=== PATIENT | male | born 1965 | race Caucasian/White ===

== ENCOUNTER 2021-07-13 22:13 | Emergency (ER) | payer MEDICARE, MEDICAID, SELFPAY ==
[2021-07-13 22:51] VITALS: BP 143/103; PULSE 78; RESP 16; TEMP 36.1; O2SAT 97; BMI 26.4
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
[2021-07-13 23:55] VITALS: BP 135/84; PULSE 73; RESP 16; TEMP 36.5; O2SAT 96
[2021-07-14 00:03] LABS: Add Urine Culture? Yes; Add Urine Microscopic? YES; Bacteria Urine 3+ /hpf; Bilirubin Urine Neg (Negative); Blood Urine 2+ (Negative); Glucose Urine UA Norm (Normal); Ketones Urine Negative (Negative); Leukocyte Esterase Urine 2+ (Negative); Nitrate Urine Positive (Negative); Protein Urine Trace (Negative); RBC Urine 0-4 /hpf (0-2); Specific Gravity, Urine 1.015 (1.005-1.030); Squamous Epithelial Cell Urine 0-4 /hpf (0-5); Urine Appearance Clear (CLEAR); Urine Color Yellow (Yellow); Urobilinogen Urine Norm (Negative); WBC Urine 40-55 /hpf (0-5); pH Urine 6 (5-7)
[2021-07-14 00:17] LABS: Basophils % 0.3 %; Eosinophils # 0.2 10^3/uL (0.0-0.8); Eosinophils % 1.2 %; Hematocrit 35.2 % (42.0-52.0); Hemoglobin 11.6 g/dL (11.7-16.6); Lymphocytes # 1.7 10^3/uL (0.8-4.8); Lymphocytes % 13.4 %; Mean Platelet Volume 10.3 fL (7.4-10.4); Monocytes # 1.4 10^3/uL (0.2-0.9); Monocytes % 11.4 %; Neutrophils % 73.2 %; Nucleated Red Blood Cells % 0 %; Platelet Count 302 10^3/cmm (130-400); Red Cell Distribution Width 13.8 % (12.1-15.1); White Blood Count 12.4 10^3/uL (4.0-10.0)
[2021-07-14 00:30] LABS: Alanine Aminotransferase 7 U/L (0-41); Albumin Level 3.7 g/dL (3.5-5.2); Alkaline Phosphatase 119 IU/L (40-130); Anion Gap 17.1 (5-19); Aspartate Amino Transferase 11 U/L (0-40); Blood Urea Nitrogen 14 mg/dL (6-20); Calcium 9.5 mg/dL (8.5-10.5); Carbon Dioxide 26 mmol/L (22-29); Chloride 99 mmol/L (98-107); Globulin 3.1 g/dL (1.3-4.6); Glomerular Filtration Rate 220.9 mL/min (90-130); Glucose 101 mg/dL (65-115); Osmolality Calculated 287 mOsm/kg (285-295); Potassium 4.1 mmol/L (3.5-5.1); Sodium 138 mmol/L (136-145); Total Bilirubin 0.2 mg/dL (0.15-1.2); Total Protein 6.8 g/dL (6.6-8.7)
--- NOTE | 2021-07-14 01:00 | CTR_ITS ---
PROCEDURE INFORMATION: Exam: CT Abdomen And Pelvis Without Contrast Exam date and time: 07/14/2021 1:00 AM Age: 56 years old Clinical indication: Abdominal pain; Patient HX: Patient C/O worsening rectal pain. Patient quadriplegic. Unable to put arms above head. TECHNIQUE: Imaging protocol: Computed tomography of the abdomen and pelvis without contrast. Radiation optimization: All CT scans at this facility use at least one of these dose optimization techniques: automated exposure control; mA and/or kV adjustment per patient size (includes targeted exams where dose is matched to clinical indication); or iterative reconstruction. COMPARISON: No relevant prior studies available. RADIATION DOSE METRICS: Total DLP (mGy-cm): 2318.34 FINDINGS: Pleural spaces: Left posterior pleural thickening and parenchymal lung scarring. Liver: Normal. No mass. Gallbladder and bile ducts: Normal. No calcified stones. No ductal dilation. Pancreas: Normal. No ductal dilation. Spleen: Normal. No splenomegaly. Adrenal glands: Normal. No mass. Kidneys and ureters: Severely atrophic left renal parenchyma. Mild left renal hydronephrosis. Stacked stones in the proximal left ureter. Additional nonobstructing left renal stones and parenchymal calcifications. Simple right renal lower pole cortical cyst. Stomach and bowel: Large diffuse colonic fecal volume. No inflammatory bowel wall thickening. No dilation of small bowel loops. Appendix: No evidence of appendicitis. Intraperitoneal space: Unremarkable. No free air. No significant fluid collection. Vasculature: Scattered atherosclerosis. No aneurysm. Lymph nodes: Unremarkable. No enlarged lymph nodes. Urinary bladder: Thick-walled appearance of the bladder. Reproductive: Unremarkable as visualized. Bones/joints: Demineralized bones. Heterotopic bone formation adjacent to the proximal femur. Severe L5-S1 disc disease. Soft tissues: Unremarkable. CT/CT abdomen pelvis wo con [id number] IMPRESSION: 1. Constipation. 2. No acute inflammatory process in the abdomen or pelvis. 3. Left-sided nephrolithiasis and ureterolithiasis with severely atrophic left renal parenchyma. COMMENTS: Consistent with the [place] [employer]'s Incidental Findings Committee white paper (J Am Jameson Radiol 2018): Any incidental renal lesion less than 1 cm or classified as too small to characterize, or any incidental cystic renal lesion characterized as simple-appearing, is likely benign. No follow-up imaging is recommended for these lesions per consensus recommendations based on imaging criteria.
[2021-07-14 01:44] VITALS: RESP 16
[2021-07-14] MEDS: lidocaine 1% INJ 20 mL 2.3 ML INJECTION (01:44)
[2021-07-14] MEDS: cefTRIAXone 1,000 mg SDV 1000 MG IM (01:44)
[2021-07-14] MEDS: HYDROmorphone 1 mg/mL INJ 1 mL 2 MG IM (01:44)
[2021-07-14 01:45] VITALS: BP 140/82; PULSE 70; RESP 16; TEMP 36.5; O2SAT 97
[2021-07-14] MEDS: haloperidol inj 5 mg/mL INJ 1 mL IM (02:30)
== END 2021-07-14 05:26 | disposition home or self-care (01) ==
PROVIDERS: Emergency Provider Nurse Practitioner Family
DX: K59.01 Slow transit constipation (principal); N39.0 Urinary tract infection, site not specified; B96.89 Other specified bacterial agents as the cause of diseases classified elsewhere
CPT/HCPCS: 36415; 51702; 74176; 80053; 81001; 81003; 85025; 87077; 87086; 87186; 96372; 99283; J0696; J1170; J1630

== ENCOUNTER 2021-08-10 10:40 | Inpatient (IN) | payer MEDICARE, MEDICAID, SELFPAY ==
[2021-08-10] VITALS (11 sets, daily range): BP systolic 100–115; BP diastolic 63–81; PULSE 78–92; RESP 16–20; TEMP 36.4–37.1; O2SAT 94–97; BMI 25.1
--- NOTE | 2021-08-10 10:59 | US_ITS ---
WS: [id number] SCROTAL ULTRASOUND EXAMINATION CLINICAL INFORMATION: L testicle pain COMPARISON: None. FINDINGS: TESTES Prominent bilateral scrotal skin thickening. Slightly heterogeneous RIGHT testicular echotexture. No focal lesion. Normal appearing LEFT testicula r echotexture Color Doppler: Normal color Doppler flow pattern. Right testes size: 3.6 cm x 2.4 cm x 2.2 cm. Left testes size: 3.9 cm x 2.3 cm x 2.1 cm. EPIDIDYMIDES Normal in size and echotexture, without focal lesion. Color Doppler: Normal color Doppler flow pattern. Right epididymis size: cm x cm x 0.3 cm. Left epididymitis size: cm x cm x 0.4 cm. HYDROCELE Moderate RIGHT and small LEFT hydroceles VARICOCELE None. OTHER FINDINGS None. US/US scrotum [id number] IMPRESSION: 1. RIGHT scrotal skin thickening. 2. Moderate RIGHT and small LEFT hydroceles. Septations in the RIGHT hydrocele . 3. Normal testicular vascularity bilaterally. 4. No focal testicular lesions.
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
[2021-08-10 11:15] LABS: Basophils # 0.1 10^3/uL (0.0-0.1); Basophils % 0.3 %; Eosinophils # 0.1 10^3/uL (0.0-0.8); Eosinophils % 0.2 %; Hematocrit 26.4 % (42.0-52.0); Hemoglobin 8.6 g/dL (11.7-16.6); Lymphocytes # 2.5 10^3/uL (0.8-4.8); Lymphocytes % 9.3 %; Mean Corpuscular HGB Conc 32.6 g/dL (30.0-36.0); Mean Corpuscular Hemoglobin 28.3 pg (28.0-34.0); Mean Corpuscular Volume 86.8 fl (80-94); Mean Platelet Volume 10.5 fL (7.4-10.4); Monocytes # 2.4 10^3/uL (0.2-0.9); Monocytes % 8.8 %; Neutrophils # 21.51 10^3/uL (1.8-7.7); Neutrophils % 79.9 %; Nucleated Red Blood Cells % 0 %; Platelet Count 617 10^3/cmm (130-400); Red Blood Count 3.04 10^6/uL (4.1-5.3); Red Cell Distribution Width 15.2 % (12.1-15.1); White Blood Count 26.9 10^3/uL (4.0-10.0)
[2021-08-10 11:22] LABS: Add Urine Microscopic? YES; Bilirubin Urine Neg (Negative); Blood Urine 2+ (Negative); Glucose Urine UA Norm (Normal); Ketones Urine Negative (Negative); Leukocyte Esterase Urine 2+ (Negative); Nitrate Urine Positive (Negative); Protein Urine Neg (Negative); Urine Appearance Cloudy (CLEAR); Urine Color Yellow (Yellow); Urobilinogen Urine Norm (Negative); pH Urine 6.5 (5-7)
[2021-08-10 11:34] LABS: Add Urine Culture? Yes; Bacteria Urine 4+ /hpf; Squamous Epithelial Cell Urine 0-4 /hpf (0-5); WBC Urine >100 /hpf (0-5)
--- NOTE | 2021-08-10 12:19 | CT_ITS ---
WS: [id number] CT ABDOMEN PELVIS TECHNIQUE: Noncontrast CT of the abdomen and pelvis with coronal and sagittal reformatted images. CLINICAL INFORMATION: flank pain COMPARISON: July 14, 2021 DLP: 2210.[address] scans at [facility] use at least one of these dose optimization techniques: automated e xposure control; mA and/or kV adjustment per patient size (includes targeted exams where dose is matc hed to clinical indication); or iterative reconstruction. FINDINGS: Normal noncontrast liver. Gallbladder is contracted. Normal noncontrast spleen. Normal GE junction. D ependent atelectasis in the lung bases. Adrenal glands are normal. No hydronephrosis in the RIGHT kid brandon. RIGHT ureter is decompressed. Moderate LEFT hydronephrosis similar to the prior examination. Atrophic LEFT kidney with parenchymal calcifications. Obstructing LEFT proximal ureteral calculus unchanged compared to July 14, 2021. This measures 7 mm. Additional adjacent smaller accessory calculus. Distal LEFT ureter is decompresse d. Mild diffuse bladder wall thickening can be seen with cystitis. Normal caliber abdominal aorta. Dense sigmoid constipation. Disc space narrowing worse L5-S1. Osteopenia. Diffuse body wall anasarca. Hypertrophic changes about the LEFT greater trochanter. Diffuse edema involving the soft tissues of the pubis anterior the pubic symphysis. Fluid collection measures approximately 8.1 x 6.1 x 5.5 CM. Recommend correlation for cellulitis and infection. Fluid collection abuts the dorsal aspect of the penis deep to the pubic bone. Scrotal skin thickening with hydroceles. CT/CT kidney stone [id number] IMPRESSION: 1. Atrophic LEFT kidney with moderate LEFT hydronephrosis and obstructing LEFT proximal ureteral calculi the largest measuring 7 mm unchanged from previous. 2. No hydronephrosis in RIGHT kidney. 3. Diffuse bladder wall thickening can be seen with cystitis. 4. Dense sigmoid constipation. 5. Fluid collection measuring 8.1 x 6.1 x 5.5 cm with some surrounding inflamm atory stranding involving the pubis. This is deep to the pubic bone and anterio r to the pubic symphysis. Recommend correlation for infection. Fluid collection abuts the dorsal aspect of the penis. 6. Small bilateral hydroceles and scrotal skin thickening.
[2021-08-10] MEDS: cefTRIAXone 2,000 MG in sodium chloride 0.9% (plus) 50 ML 100 MG IV (13:07)
--- NOTE | 2021-08-10 13:10 | PC.PHAR ---
pt is from [facility] pt had all his am meds today
[2021-08-10 15:33] LABS: Alanine Aminotransferase < 5 U/L (0-41); Albumin Level 2.4 g/dL (3.5-5.2); Alkaline Phosphatase 117 IU/L (40-130); Anion Gap 14.8 (5-19); Aspartate Amino Transferase 11 U/L (0-40); Blood Urea Nitrogen 13 mg/dL (6-20); Calcium 9.2 mg/dL (8.5-10.5); Carbon Dioxide 27 mmol/L (22-29); Chloride 96 mmol/L (98-107); Globulin 4.3 g/dL (1.3-4.6); Glomerular Filtration Rate 220.9 mL/min (90-130); Glucose 99 mg/dL (65-115); Osmolality Calculated 278 mOsm/kg (285-295); Potassium 3.8 mmol/L (3.5-5.1); Sodium 134 mmol/L (136-145); Total Bilirubin 0.2 mg/dL (0.15-1.2); Total Protein 6.7 g/dL (6.6-8.7)
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
[2021-08-10] MEDS: ondansetron 2 mg/ML SDV 2 mL 4 MG IVP (15:40)
[2021-08-10] MEDS: morphine 4 mg/mL SDV 1 mL IVP (16:04)
[2021-08-10 16:51] LABS: Lactic Sepsis W/Reflex 0.9 mmol/L (0.5-2.2)
[2021-08-10] MEDS: calcium polycarbophil 625 mg Tablet 1250 MG PO (18:08)
[2021-08-10] MEDS: calcium carb-vit d 600mg/400unit 1 Tablet 1 EACH PO (18:08)
[2021-08-10] MEDS: tamsulosin 0.4 mg Capsule PO (18:09)
[2021-08-10] MEDS: bisacodyl 5 mg Tablet PO (18:09)
[2021-08-10] MEDS: D5-NS 0.45% + KCL 20 mEq 20 MEQ/1,000 ML BAG 100 MEQ IV (18:12)
[2021-08-10] MEDS: aztreonam 1,000 MG in sodium chloride 0.9% (plus) 50 ML 100 MG IV (18:19)
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
[2021-08-10] MEDS: acetaminophen 500 mg Tablet 1000 MG PO (21:33)
[2021-08-10] MEDS: docusate sodium 100 mg Capsule PO (21:33)
[2021-08-10] MEDS: sennosides 8.6 mg Tablet PO (21:33)
[2021-08-10] MEDS: baclofen 10 mg Tablet 20 MG PO (21:33)
[2021-08-10] MEDS: levETIRAcetam 500 mg Tablet 750 MG PO (21:33)
[2021-08-10] MEDS: gabapentin 300 mg Capsule 900 MG PO (21:33)
[2021-08-10] MEDS: duloxetine 60 mg Capsule PO (21:39)
[2021-08-11] VITALS (15 sets, daily range): BP systolic 86–120; BP diastolic 55–82; PULSE 72–88; RESP 12–20; TEMP 36.2–36.7; O2SAT 92–100
--- NOTE | 2021-08-11 | SCC_ITS ---
Procedure done: 1. Cystoscopy, left retrograde ureteropyelogram, ureteral catheter placement (temporary) 2. Incision and drainage and irrigation of lower abdominal wall abscess. 62.6 seconds of fluoroscopic guidance, for a cumulative dose of 16.49 mGy, was provided to Dr. Pitts by the radiology department. C-arm images of the abdomen/pelvis were saved for the patient's permanent record. [facility]
[2021-08-11] MEDS: D5-NS 0.45% + KCL 20 mEq 20 MEQ/1,000 ML BAG 100 MEQ IV ×3 (04:13→19:30)
[2021-08-11 05:03] LABS: Basophils # 0.1 10^3/uL (0.0-0.1); Basophils % 0.2 %; Eosinophils # 0.1 10^3/uL (0.0-0.8); Eosinophils % 0.3 %; Hematocrit 27.8 % (42.0-52.0); Lymphocytes # 2.1 10^3/uL (0.8-4.8); Lymphocytes % 8.4 %; Mean Corpuscular HGB Conc 32.4 g/dL (30.0-36.0); Mean Corpuscular Hemoglobin 28.2 pg (28.0-34.0); Mean Corpuscular Volume 87.1 fl (80-94); Monocytes % 8.2 %; Neutrophils # 19.82 10^3/uL (1.8-7.7); Neutrophils % 81.2 %; Nucleated Red Blood Cells % 0 %; Platelet Count 641 10^3/cmm (130-400); Red Blood Count 3.19 10^6/uL (4.1-5.3); Red Cell Distribution Width 15.2 % (12.1-15.1); White Blood Count 24.4 10^3/uL (4.0-10.0)
[2021-08-11] MEDS: levothyroxine 75 mcg Tablet PO (05:23)
[2021-08-11] MEDS: aztreonam 1,000 MG in sodium chloride 0.9% (plus) 50 ML 100 MG IV (05:30)
[2021-08-11 05:33] LABS: Anion Gap 13.6 (5-19); Blood Urea Nitrogen 10 mg/dL (6-20); Calcium 9.1 mg/dL (8.5-10.5); Carbon Dioxide 25 mmol/L (22-29); Chloride 98 mmol/L (98-107); Glomerular Filtration Rate 220.9 mL/min (90-130); Glucose 117 mg/dL (65-115); Osmolality Calculated 274 mOsm/kg (285-295); Potassium 4.6 mmol/L (3.5-5.1); Sodium 132 mmol/L (136-145); Thyroid Stimulating Hormone 1.25 uIU/mL (0.27-4.20)
[2021-08-11] MEDS: gabapentin 300 mg Capsule 900 MG PO ×3 (08:41→20:47)
[2021-08-11] MEDS: acetaminophen 500 mg Tablet 1000 MG PO ×3 (08:41→20:47)
[2021-08-11] MEDS: calcium carb-vit d 600mg/400unit 1 Tablet 1 EACH PO ×2 (08:42→17:55)
[2021-08-11] MEDS: baclofen 10 mg Tablet 20 MG PO ×3 (08:42→20:47)
[2021-08-11] MEDS: levETIRAcetam 500 mg Tablet 750 MG PO ×2 (08:42→20:48)
[2021-08-11] MEDS: oxyCODONE 5 mg IR Tab/Cap PO (08:46)
--- NOTE | 2021-08-11 09:04 | SC_ITS ---
WS: [id number] INTRAOPERATIVE TECHNIQUE: 2 Spot fluoroscopic images for intraoperative purposes. FLUOROSCOPY TIME: 62.6 seconds CLINICAL INFORMATION: Left ureteral stone COMPARISON: None. FINDINGS: LEFT distal ureteroscopy with contrast injection. Pelvic phleboliths. Images obtained for intraoperat aimee purposes. SC/C-arm FL for Urology IMPRESSION: Images obtained for intraoperative purposes.
--- NOTE | 2021-08-11 09:08 | P.PN_ITS ---
Subjective Subjective: Still complaining of significant pain. He does have some discomfort in the area of his lower abdomen mons pubis but his biggest complaint is the buttocks area where he has neuropathic pain that has been chronic. White count has improved slightly on antibiotics but not dramatically. No additional changes to consult documentation. Reviewed with Dr. Dominguez regarding the CT scan findings. Ultimately decision was made to incision and drainage through the anterior abdominal wall mons pubis area. Because is not clear whether or not the stone and UTI are contributing to an obstructive pyelonephritis I recommended a cystoscopy and ureteral stent placement on the left. This will not be an attempt to deal with the stones initially due to the potential of obstructive pyelonephritis/septic complications, but definitive treatment of the stone will be postponed until later. I reviewed the details of the proposed procedures with Foreign Soumya. He expressed understanding. Agreed with the rationale. I also did review with him that I do not think the drainage of the likely mons pubis area abscess is going to solve the chronic buttocks pain that bothers him the most. He does have some arrangements already made with neurologic follow-up in hopes of getting a better handle on his chronic neuropathic pain. Vitals/I&O/Wt Last Vital Signs Temp 97.4 F L 08/11/21 03:44 Pulse 84 08/11/21 07:15 Resp 18 08/11/21 08:46 BP 92/61 08/11/21 07:15 Pulse Ox 92 08/11/21 07:15 08/10/21 08/11/21 08/11/21 22:59 06:59 14:59 Intake Total 390 / 440 1050 / 1490 Output Total 1000 / 1000 600 / 1600 Balance -610 / -560 450 / -110 Weight last 48 hrs Weight 198 lb Weight 180 lb Physical Exam Narrative: Alert and oriented. Still in discomfort. No change in the appearance of his lower abdominal wall. Still indurated with no evidence of pointing abscess etc. No labored respiration. No audible wheezing. Regular rhythm. Urinary Catheter Management: Condom: Cath Placed During This Visit: no Reason for Continuing Indwelling Catheter: Not indwelling catheter Data : 08/11/21 04:49 08/11/21 04:49 Micro: Microbiology 08/10/21 11:11 Urine Culture - Preliminary Urine,Clean Catch Gram Negative Rods 08/10/21 16:20 Blood Culture - Preliminary Blood SPECIMEN COLLECTED A&P Assessment and plan (1) Left ureteral calculus: We will plan for stent placement today Status: Acute (2) Pelvic fluid collection: Clinical likelihood of infectious source is high. Reviewed with Dr. Dominguez. We will plan on incision and drainage under same anesthesia for stent placement. Status: Acute (3) Traumatic brain injury: Status: Chronic (4) Quadriplegia: Status: Chronic (5) Kidney stone on left side: Status: Acute Attestations Medical Necessity Statement*: To the operating room today for intervention as described above. 

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
--- NOTE | 2021-08-11 10:25 | PC.CHAP ---
Pastoral Care Encounter/Spiritual Assessment Type of Contact [] Declined er manager visit [] Patient/Family/Request visit [] Outpatient visit [] Follow-up visit [] Physician referral [] Code/Alert [x] Routine visit [] Staff referral [] Actively dying [] Patient sleeping [] Family support [] [] Out of room [] Palliative care [] [x] Receiving care in room [] Pre-surgical visit [] Trauma [] Long length of stay [] ICU visit [] Other: Relational/Emotional Strength [] Patient feels connected with others/family/visitors/staff [] Distress [] Loneliness/isolation [] Abandonment Spirituality of Patient [] Person of Stephanie [] Attends Gnosticist of their Stephanie [] Believes in Prayer [] Reads Bible or Zoroastrian materials [] There are Spiritual issues to be addressed Shift Superintendent Caustic Cresylate Interventions [] Prayer [] Active listening [] Non-anxious presence [] Spiritual/emotional support [] Crisis/trauma care [] Spiritual counseling [] Bereavement support [] Provided bereavement packet [] Provided Bible/devotional materials [] Provided toy/stuffed animal, coloring book to patient or family member [] Provided Communion [] Anointing/[place] [] Salvation [] Completed spiritual assessment [] Other: Impact on Illness or Injury [] Angry [] Fearful [] Anxious [] Often cries [] Exhaustion [] Unable to work [] Unable to attend tenriism [] Unable to walk/stand [] Unable to read [] Unable to drive [] Unable to eat/drink [] Unable to sleep [] Unable to be with family [] Patient intubated [] Other: Summary Time spent with patient
[2021-08-11] MEDS: lidocaine 2% Urojet 20 mL TOPICAL (11:00)
[2021-08-11] MEDS: iohexol 300 mg/mL 50 mL Btl (OR ONLY) XX (11:00)
[2021-08-11] MEDS: ceFAZolin 1,000 mg SDV 2000 MG IRRIGATION (11:20)
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
[2021-08-11] MEDS: sennosides 8.6 mg Tablet PO ×3 (13:44→20:49)
[2021-08-11] MEDS: duloxetine 60 mg Capsule PO ×2 (13:44→20:49)
[2021-08-11] MEDS: docusate sodium 100 mg Capsule PO ×2 (16:33→20:49)
--- NOTE | 2021-08-11 16:49 | ANE.PACU2 ---
Inpatient post-anesthesia follow up: Airway intact: Yes Vital signs: Temperature 97.1 F Pulse Rate 79 Respiratory Rate 18 Blood Pressure 106/71 Pulse Oximetry 97 Oxygen Delivery Me thod Room Air Oxygen Flow Rate 6 Fraction of Inspir ed Oxygen Hydration adequate: Yes Nausea and vomiting: No Pain level: 2 Mental status: Baseline
[2021-08-11] MEDS: calcium polycarbophil 625 mg Tablet 1250 MG PO (17:55)
[2021-08-11] MEDS: tamsulosin 0.4 mg Capsule PO (17:55)
[2021-08-11] MEDS: bisacodyl 5 mg Tablet PO (17:55)
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
[2021-08-12] VITALS (11 sets, daily range): BP systolic 96–128; BP diastolic 60–82; PULSE 69–90; RESP 16–19; TEMP 36.2–36.8; O2SAT 95–98
[2021-08-12] MEDS: levothyroxine 75 mcg Tablet PO (06:07)
[2021-08-12] MEDS: D5-NS 0.45% + KCL 20 mEq 20 MEQ/1,000 ML BAG 100 MEQ IV (06:45)
[2021-08-12 09:49] LABS: Basophils % 0.2 %; Eosinophils # 0.1 10^3/uL (0.0-0.8); Eosinophils % 0.8 %; Hematocrit 28.9 % (42.0-52.0); Hemoglobin 8.8 g/dL (11.7-16.6); Lymphocytes # 1.7 10^3/uL (0.8-4.8); Lymphocytes % 10.3 %; Mean Corpuscular HGB Conc 30.4 g/dL (30.0-36.0); Mean Corpuscular Hemoglobin 27.8 pg (28.0-34.0); Mean Corpuscular Volume 91.5 fl (80-94); Mean Platelet Volume 9.7 fL (7.4-10.4); Monocytes % 6.1 %; Neutrophils # 13.46 10^3/uL (1.8-7.7); Neutrophils % 80.7 %; Nucleated Red Blood Cells % 0 %; Platelet Count 648 10^3/cmm (130-400); Red Blood Count 3.16 10^6/uL (4.1-5.3); Red Cell Distribution Width 15.4 % (12.1-15.1); White Blood Count 16.7 10^3/uL (4.0-10.0)
[2021-08-12 10:02] LABS: Anion Gap 14.4 (5-19); Blood Urea Nitrogen 7 mg/dL (6-20); Calcium 8.5 mg/dL (8.5-10.5); Carbon Dioxide 24 mmol/L (22-29); Chloride 104 mmol/L (98-107); Glomerular Filtration Rate 307.9 mL/min (90-130); Glucose 131 mg/dL (65-115); Osmolality Calculated 286 mOsm/kg (285-295); Potassium 4.4 mmol/L (3.5-5.1); Sodium 138 mmol/L (136-145)
[2021-08-12] MEDS: acetaminophen 500 mg Tablet 1000 MG PO ×3 (10:11→21:01)
[2021-08-12] MEDS: levETIRAcetam 500 mg Tablet 750 MG PO ×2 (10:11→21:02)
[2021-08-12] MEDS: gabapentin 300 mg Capsule 900 MG PO ×3 (10:12→21:02)
[2021-08-12] MEDS: baclofen 10 mg Tablet 20 MG PO ×3 (10:12→21:01)
[2021-08-12] MEDS: docusate sodium 100 mg Capsule PO ×3 (10:12→21:01)
[2021-08-12] MEDS: calcium carb-vit d 600mg/400unit 1 Tablet 1 EACH PO ×2 (10:12→17:45)
[2021-08-12] MEDS: duloxetine 60 mg Capsule PO ×2 (10:12→21:02)
[2021-08-12] MEDS: bisacodyl 5 mg Tablet PO ×2 (10:13→17:45)
[2021-08-12] MEDS: calcium polycarbophil 625 mg Tablet 1250 MG PO ×2 (10:13→17:45)
[2021-08-12] MEDS: sennosides 8.6 mg Tablet PO ×4 (10:13→21:02)
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
[2021-08-12] MEDS: sodium chloride 0.9% 1,000 ML 75 ML IV (17:41)
[2021-08-12] MEDS: tamsulosin 0.4 mg Capsule PO (17:45)
--- NOTE | 2021-08-12 19:28 | P.PN_ITS ---
Subjective Subjective: Urology follow-up. Postop day #1 incision and drainage of pelvic/abdominal wall abscess of unclear etiology. Overall improvement in the way he feels as well as laboratory values with decreasing white count down to 16.7. No evidence of septic symptoms or progression. Reviewed with patient intraoperative findings of the abscess as well as the inability to access his left upper urinary tract due to chronically and tightly obstructing left ureteral stone. Reviewed that the stone approach was abandoned in order to treat what was felt to be the more significant underlying cause of his infection which was the abdominal wall/pelvic abscess. Spoke with his mother on the phone as well. Dressing change: Packing was removed. Some old blood. No foul odor. Replaced with dry packing. Tolerated well. Recommend continued daily dressing changes. Continue antibiotics. Reviewed possible reattempt at evaluation of the left mid ureteral stone at some point if he prefers. We will plan on Metz catheter removal tomorrow. Replace condom catheter. Vitals/I&O/Wt Last Vital Signs Temp 97.5 F L 08/12/21 16:00 Pulse 83 08/12/21 16:00 Resp 18 08/12/21 17:45 BP 123/79 08/12/21 16:00 Pulse Ox 96 08/12/21 16:00 08/12/21 08/12/21 08/12/21 06:59 14:59 22:59 Intake Total 2120 / 4948.334 580 / 580 1100 / 1680 Output Total 1550 / 2630 2500 / 2500 Balance 570 / 2318.334 580 / 580 -1400 / -820 Weight last 48 hrs Weight 203 lb 8 oz Weight 198 lb Physical Exam Narrative: No acuteAlert and oriented distress Abdomen is soft nontender. No evidence of cellulitis around the I&D site. Catheter draining clear yellow urine. Quadriplegia as previously described Urinary Catheter Management: Condom: Cath Placed During This Visit: yes, but has since been removed by the nurse Reason for Continuing Indwelling Catheter: Required Immobilization for Trauma or Surgery or Anesthesia Urinary Catheter Date of Insertion: 08/11/21 Urinary Catheter Time of Insertion: 11:15 Date Urinary Catheter Removed: 08/11/21 Time Urinary Catheter Discontinued: 10:35 Data : 08/12/21 09:38 08/12/21 09:38 Micro: Microbiology 08/11/21 11:11 Urine Culture - Preliminary Urine Catheterized 08/11/21 11:00 Gram Stain - Final Incision Anaerobic Culture - Preliminary Abscess Culture - Preliminary Gram Negative Rods Enterococcus species 08/10/21 11:11 Urine Culture - Final Urine,Clean Catch Escherichia coli 08/10/21 16:20 Blood Culture - Preliminary Blood NEGATIVE TO DATE A&P Assessment and plan (1) Pelvic fluid collection: Discovery of about 300 cc of purulent material drained had I&D yesterday. Ongoing daily packing changes Status: Acute (2) Left ureteral calculus: Could not access the upper urinary tract beyond the obstructing stones. Reviewed options with him. No decision yet made attempt to address the stones again. Status: Acute Attestations Medical Necessity Statement*: Requiring IV antibiotics and dressing changes. Coding Level of Care Code Acute Director Of Medical Services for Carol Howard Diagnoses Left ureteral calculus N20.1 Pelvic fluid collection R18.8
[2021-08-13] VITALS (10 sets, daily range): BP systolic 89–123; BP diastolic 59–78; PULSE 64–83; RESP 16–18; TEMP 35.7–36.7; O2SAT 94–98
[2021-08-13 05:38] LABS: Basophils % 0.3 %; Eosinophils # 0.4 10^3/uL (0.0-0.8); Eosinophils % 3.7 %; Hematocrit 29.2 % (42.0-52.0); Hemoglobin 8.7 g/dL (11.7-16.6); Lymphocytes # 2.4 10^3/uL (0.8-4.8); Lymphocytes % 22.7 %; Mean Corpuscular HGB Conc 29.8 g/dL (30.0-36.0); Mean Corpuscular Hemoglobin 28.4 pg (28.0-34.0); Mean Corpuscular Volume 95.4 fl (80-94); Mean Platelet Volume 10.5 fL (7.4-10.4); Monocytes # 0.9 10^3/uL (0.2-0.9); Neutrophils # 6.57 10^3/uL (1.8-7.7); Neutrophils % 61.5 %; Nucleated Red Blood Cells % 0 %; Platelet Count 598 10^3/cmm (130-400); Red Blood Count 3.06 10^6/uL (4.1-5.3); Red Cell Distribution Width 15.7 % (12.1-15.1); White Blood Count 10.7 10^3/uL (4.0-10.0)
[2021-08-13] MEDS: levothyroxine 75 mcg Tablet PO (05:52)
[2021-08-13 05:54] LABS: Anion Gap 12.5 (5-19); Blood Urea Nitrogen 9 mg/dL (6-20); Calcium 8.6 mg/dL (8.5-10.5); Carbon Dioxide 24 mmol/L (22-29); Chloride 106 mmol/L (98-107); Glomerular Filtration Rate 307.9 mL/min (90-130); Glucose 84 mg/dL (65-115); Osmolality Calculated 284 mOsm/kg (285-295); Potassium 4.5 mmol/L (3.5-5.1); Sodium 138 mmol/L (136-145)
[2021-08-13] MEDS: sodium chloride 0.9% 1,000 ML 75 ML IV (06:30)
--- NOTE | 2021-08-13 09:15 | PC.SOCIAL ---
IMM Update Pg. 2 of IMM updated and reviewed with patient who verbalized understanding. Copy provided.
[2021-08-13] MEDS: calcium carb-vit d 600mg/400unit 1 Tablet 1 EACH PO ×2 (09:55→18:19)
[2021-08-13] MEDS: acetaminophen 500 mg Tablet 1000 MG PO ×3 (09:55→21:34)
[2021-08-13] MEDS: baclofen 10 mg Tablet 20 MG PO ×3 (09:55→21:34)
[2021-08-13] MEDS: duloxetine 60 mg Capsule PO ×2 (09:55→21:35)
[2021-08-13] MEDS: docusate sodium 100 mg Capsule PO ×3 (09:55→21:35)
[2021-08-13] MEDS: gabapentin 300 mg Capsule 900 MG PO ×3 (09:55→21:35)
[2021-08-13] MEDS: levETIRAcetam 500 mg Tablet 750 MG PO ×2 (09:55→21:34)
[2021-08-13] MEDS: bisacodyl 5 mg Tablet PO ×2 (09:55→18:19)
[2021-08-13] MEDS: calcium polycarbophil 625 mg Tablet 1250 MG PO (09:55)
[2021-08-13] MEDS: sennosides 8.6 mg Tablet PO ×4 (09:56→21:33)
[2021-08-13 13:39] LABS: SARS Covid-2 Antigen Negative (Negative)
--- NOTE | 2021-08-13 17:39 | P.PN_ITS ---
Subjective Subjective: Urology follow-up, postop day #2 Afebrile, vital signs stable White count continues to decrease to 10.7. He does not feel much different. No new complaints. Medications: Reviewed: Yes Vitals/I&O/Wt Last Vital Signs Temp 97.7 F 08/13/21 16:00 Pulse 73 08/13/21 16:00 Resp 17 08/13/21 16:00 BP 121/76 08/13/21 16:00 Pulse Ox 94 08/13/21 16:00 08/13/21 08/13/21 08/13/21 06:59 14:59 22:59 Intake Total 1281.25 / 3061.25 460 / 460 Output Total 1600 / 7100 1500 / 1500 Balance -318.75 / -4038.75 -1040 / -1040 Weight last 48 hrs Weight 211 lb 11.2 oz Weight 203 lb 8 oz Physical Exam Const: COMMON NORMALS: no acute distress, patient oriented x3 and alert OTHER: Quadriplegia GI: OTHER: Abdomen is soft. Wound site looks healthy. There is no evidence of cellulitis. The wound itself looks healthy. There is some serosanguineous fluid at the very base. Dressing changed. Dry 1 inch Sneha packed deep into the wound. Neuro: COMMON NORMALS: patient oriented x3 SENSORIUM/ORIENTATION: Yes alert Urinary Catheter Management: Condom: Cath Placed During This Visit: yes, but has since been removed by the nurse Reason for Continuing Indwelling Catheter: Chronic Indwelling Urinary Catheter on Admission Urinary Catheter Date of Insertion: 08/11/21 Urinary Catheter Time of Insertion: 11:15 Date Urinary Catheter Removed: 08/11/21 Time Urinary Catheter Discontinued: 10:35 Data : 08/13/21 05:21 08/13/21 05:21 Micro: Microbiology 08/11/21 11:00 Gram Stain - Final Incision Anaerobic Culture - Preliminary Abscess Culture - Preliminary Escherichia coli Enterococcus faecalis 08/11/21 11:11 Urine Culture - Final Urine Catheterized A&P Assessment and plan (1) Left ureteral calculus: Status: Acute (2) Pelvic fluid collection: Status: Acute Plan DC Metz catheter today. Replace with condom catheter. That is his normal mode of bladder management and despite quadriplegia it appears that he emptied well and had no significant upper urinary tract obstructive type changes other than that which was related to the left mid ureteral stone that was chronically obstructing his left kidney. Attestations Medical Necessity Statement*: Likely a candidate for discharge tomorrow. I will review with the care home staff expectations regarding wound care and packing. Coding Level of Care Code Acute Home Health Administrator for Carol Howard Diagnoses Left ureteral calculus N20.1 Pelvic fluid collection R18.8
[2021-08-13] MEDS: tamsulosin 0.4 mg Capsule PO (18:19)
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
[2021-08-14] MEDS: sodium chloride 0.9% 1,000 ML 75 ML IV (01:45)
[2021-08-14 03:30] VITALS: BP 127/80; PULSE 69; RESP 18; TEMP 36.9; O2SAT 97
[2021-08-14 05:39] LABS: Basophils # 0.1 10^3/uL (0.0-0.1); Basophils % 0.4 %; Eosinophils # 0.4 10^3/uL (0.0-0.8); Eosinophils % 3.2 %; Hematocrit 30.1 % (42.0-52.0); Hemoglobin 9.1 g/dL (11.7-16.6); Lymphocytes # 2.7 10^3/uL (0.8-4.8); Mean Corpuscular HGB Conc 30.2 g/dL (30.0-36.0); Mean Corpuscular Hemoglobin 27.5 pg (28.0-34.0); Mean Corpuscular Volume 90.9 fl (80-94); Mean Platelet Volume 10.4 fL (7.4-10.4); Monocytes % 8.5 %; Neutrophils # 7.03 10^3/uL (1.8-7.7); Neutrophils % 60.4 %; Nucleated Red Blood Cells % 0 %; Platelet Count 712 10^3/cmm (130-400); Red Blood Count 3.31 10^6/uL (4.1-5.3); Red Cell Distribution Width 15.3 % (12.1-15.1); White Blood Count 11.6 10^3/uL (4.0-10.0)
[2021-08-14] MEDS: levothyroxine 75 mcg Tablet PO (05:57)
[2021-08-14 06:10] LABS: Alanine Aminotransferase 7 U/L (0-41); Albumin Level 2.3 g/dL (3.5-5.2); Alkaline Phosphatase 119 IU/L (40-130); Anion Gap 12.4 (5-19); Aspartate Amino Transferase 17 U/L (0-40); Blood Urea Nitrogen 10 mg/dL (6-20); Calcium 8.8 mg/dL (8.5-10.5); Carbon Dioxide 24 mmol/L (22-29); Chloride 103 mmol/L (98-107); Globulin 4.2 g/dL (1.3-4.6); Glomerular Filtration Rate 220.9 mL/min (90-130); Glucose 86 mg/dL (65-115); Osmolality Calculated 278 mOsm/kg (285-295); Potassium 4.4 mmol/L (3.5-5.1); Sodium 135 mmol/L (136-145); Total Bilirubin 0.2 mg/dL (0.15-1.2); Total Protein 6.5 g/dL (6.6-8.7)
[2021-08-14 07:42] VITALS: BP 146/83; PULSE 83; RESP 16; TEMP 36.8; O2SAT 97
[2021-08-14] MEDS: ondansetron 4 MG Tablet PO (08:04)
[2021-08-14] MEDS: acetaminophen 500 mg Tablet 1000 MG PO ×2 (08:06→14:26)
[2021-08-14] MEDS: gabapentin 300 mg Capsule 900 MG PO ×2 (08:07→14:26)
[2021-08-14] MEDS: baclofen 10 mg Tablet 20 MG PO (08:07)
[2021-08-14] MEDS: calcium carb-vit d 600mg/400unit 1 Tablet 1 EACH PO (08:07)
[2021-08-14] MEDS: levETIRAcetam 500 mg Tablet 750 MG PO (10:04)
[2021-08-14] MEDS: duloxetine 60 mg Capsule PO (10:06)
[2021-08-14 10:56] VITALS: BP 120/76; PULSE 75; RESP 16; O2SAT 98
[2021-08-14 10:59] VITALS: BP 120/76; PULSE 75; RESP 16; TEMP 36.8; O2SAT 98
--- NOTE | 2021-08-14 11:49 | PC.CHAP ---
Pastoral Care Encounter/Spiritual Assessment Type of Contact [] Declined steel roller visit [] Patient/Family/Request visit [] Outpatient visit [X] Follow-up visit [] Physician referral [] Code/Alert [] Routine visit [] Staff referral [] Actively dying [X] Patient sleeping [] Family support [] [] Out of room [] Palliative care [] [] Receiving care in room [] Pre-surgical visit [] Trauma [] Long length of stay [] ICU visit [] Other: Relational/Emotional Strength [] Patient feels connected with others/family/visitors/staff [] Distress [] Loneliness/isolation [] Abandonment Spirituality of Patient [] Person of Stephanie [] Attends Yazidi of their Stephanie [] Believes in Prayer [] Reads Bible or Sikh materials [] There are Spiritual issues to be addressed Shipping And Receiving Coordinator Interventions [] Prayer [] Active listening [] Non-anxious presence [] Spiritual/emotional support [] Crisis/trauma care [] Spiritual counseling [] Bereavement support [] Provided bereavement packet [] Provided Bible/devotional materials [] Provided toy/stuffed animal, coloring book to patient or family member [] Provided Communion [] Anointing/[place] [] Salvation [] Completed spiritual assessment [] Other: Impact on Illness or Injury [] Angry [] Fearful [] Anxious [] Often cries [] Exhaustion [] Unable to work [] Unable to attend anabaptism [] Unable to walk/stand [] Unable to read [] Unable to drive [] Unable to eat/drink [] Unable to sleep [] Unable to be with family [] Patient intubated [] Other: Summary Time spent with patient
--- NOTE | 2021-08-14 12:42 | PM.PN ---
Subjective Subjective: Urology follow-up. Postop day #3 incision and drainage of abdominal wall/pelvic abscess. Afebrile. Vital signs stable. White count 11. Denies increasing symptoms. Abdominal wall looks healthy. No evidence of cellulitis around the incision site. Dressing changed. No foul odor. He will be discharged today. See Dr. Reed's note. I will plan on seeing him back in about 6 weeks. He will continue dressing changes. He wanted to postpone any type of intervention on the stone for now. I have recommended a KUB and a renal ultrasound on follow-up. Also a pelvic ultrasound to assess the area of the abscess cavity. I will speak with the nurses at [facility] to reviewed expectations regarding dressing changes. Encouraged him to call my office today if he had any concerns or questions. Vitals/I&O/Wt Last Vital Signs Temp 98.2 F 08/14/21 10:59 Pulse 75 08/14/21 10:59 Resp 16 08/14/21 10:59 BP 120/76 08/14/21 10:59 Pulse Ox 98 08/14/21 10:59 08/13/21 08/14/21 08/14/21 22:59 06:59 14:59 Intake Total 1100 / 1560 200 / 1760 460 / 460 Output Total 2300 / 3800 2100 / 5900 Balance -1200 / -2240 -1900 / -4140 460 / 460 Weight last 48 hrs Weight 211 lb 11.2 oz Physical Exam Narrative: Const COMMON NORMALS:?no acute distress, patient oriented x3 and alert OTHER: Quadriplegia GI OTHER: Abdomen is soft.? Wound site looks healthy.? There is no evidence of cellulitis.? The wound itself looks healthy.? Some granulation tissue forming. changed.? Dry 1 inch Sneha packed loosely deep into the wound. Neuro COMMON NORMALS:?patient oriented x3 SENSORIUM/ORIENTATION:?Yes alert Psychiatric: More confrontational today, about insignificant issues. Urinary Catheter Management: Condom: Cath Placed During This Visit: yes, but has since been removed by the nurse Reason for Continuing Indwelling Catheter: Not indwelling catheter Urinary Catheter Date of Insertion: 08/11/21 Urinary Catheter Time of Insertion: 11:15 Date Urinary Catheter Removed: 08/13/21 Time Urinary Catheter Discontinued: 19:04 Data : 08/14/21 04:28 08/14/21 04:28 Micro: Microbiology 08/11/21 11:00 Gram Stain - Final Incision Anaerobic Culture - Preliminary Abscess Culture - Final Escherichia coli Enterococcus faecalis 08/11/21 11:11 Urine Culture - Final Urine Catheterized A&P Assessment and plan (1) Pelvic fluid collection: Status post I&D of abscess. Packing going well. No evidence of progressive infectious concerns Status: Acute (2) Left ureteral calculus: Chronic. Mild hydronephrosis but there is significant atrophy already of the left kidney. No evidence of an infectious complication from this. I reviewed with him the options which would include conservative observation alone versus intervention. He was not willing to make a decision at this point for intervention but we will talk about that on follow-up. Have recommended an ultrasound and a KUB on follow-up. Status: Acute Plan Ready for discharge. See Dr. Reed - discharge summary. Follow-up in 6 weeks with KUB renal ultrasound pelvic ultrasound. I will speak with the nursing staff at [facility] regarding wound care. Instructions to call for any concerns or questions during that time. He will be under active care at that time with dressing changes Attestations Medical Necessity Statement*: Ready for discharge. 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
[2021-08-14 14:52] VITALS: BP 120/76; PULSE 75; RESP 16; TEMP 36.8; O2SAT 98
--- NOTE | 2021-08-14 16:32 | PM.DCS ---
Discharge Providers Date of Admission: 08/10/21 14:37 Date of Discharge: August 14, 2021 Attending Provider at Admission: Macey Montaño MD Attending Provider at Discharge: Kevin Reed Diagnoses at Discharge Discharge Diagnosis (1) Pelvic fluid collection: Status: Acute Permanent problem details: noted on CT imaging 07/2021 (2) Left ureteral calculus: Status: Acute Reason for Visit Reason for Visit: L TESTICLE PAIN Hospital Course Hospital Course 56-year-old gentleman with quadriplegia, history of TBI, hypothyroidism, kidney stones, [facility]p resident was admitted for evaluation on 08/10 initially presented with left testicular pain, however, with finding also with lower abdominal wall/mons pubis fluid collection, as well as left mid ureteral stone with obstruction, renal atrophy also noted on evaluation. He was assessed by urology, underwent incision and drainage with irrigation of lower abdominal wall abscess, also cystoscopy, left retrograde ureteropyelogram, had a Metz catheter placed. Scrotal ultrasound revealed right scrotal skin thickening, moderate right and small left hydrocele. Septation seen right hydrocele. Normal vascular vascularity bilaterally. No focal testicular lesions. While in hospital treated with empiric IV antibiotics with Primaxin, as well as dressing changes with packing after deep suprapubic wound, with reported depth of 3-3.5 inches, with cultures growing E. coli resistant to ampicillin, ciprofloxacin, levofloxacin, tetracycline, Bactrim, intermediate sensitivity to amikacin, Unasyn, as well as Enterococcus faecalis resistant on gentamicin synergy screen. His condition is improving. Leukocytosis decreased from initial 26.9 down to 11.6 thousand. He is afebrile. Without tachycardia or other signs of sepsis. Denies any complaints. Metz catheter removed and replaced back with condom catheter. With regards to left ureteral stone, with left hydronephrosis, given chronic findings and that he has had no signs of ongoing sepsis, and discussion with him consensus was to reevaluate again on follow-up with urology with consideration of whether to pursue intervention. He is to follow-up with urology in 6 weeks with KUB, renal ultrasound and pelvic ultrasound. Physical Exam Narrative: Quadriplegic Const: COMMON NORMALS: no acute distress and patient oriented x3 ORIENTATION/CONSCIOUSNESS: Yes awake HENMT: COMMON NORMALS: oropharynx normal Neck/C-Spine: COMMON NORMALS: no JVD Resp: COMMON NORMALS: normal respiratory effort and clear to auscultation bilaterally AUSCULTATION: clear to auscultation bilaterally Cardio: COMMON NORMALS: no JVD, regular rhythm, S1 normal heart sound present, S2 normal heart sound present and No murmurs present (Cardio) RHYTHM: regular rhythm HEART SOUNDS: S1 normal heart sound present and S2 normal heart sound present GI: COMMON NORMALS: Normal to inspection, nondistended, normoactive bowel sounds present, Soft to palpation and non-tender PALPATION: Yes Soft to palpation : OTHER: Lower abdominal wound packed, no surrounding erythema Extremity: COMMON NORMALS: no joint enlargement and no pedal edema Neuro: COMMON NORMALS: patient oriented x3 Skin: COMMON NORMALS: no rashes or lesions noted GENERAL SKIN EXAM: no rashes or lesions noted Urinary Catheter Management: Condom: Cath Placed During This Visit: yes, but has since been removed by the nurse Reason for Continuing Indwelling Catheter: Not indwelling catheter Urinary Catheter Date of Insertion: 08/11/21 Urinary Catheter Time of Insertion: 11:15 Date Urinary Catheter Removed: 08/13/21 Time Urinary Catheter Discontinued: 19:04 Discharge Data Studies Completed and Pending Completed Studies During Hospitalization Category Date Time Status CT kidney stone [id number] Stat Cat Scan 08/10/21 12:19 Completed US testicular [US scrotum [id number]] Stat Ultrasound 08/10/21 10:59 Completed Pending at discharge Category Date Time Status Abscess Culture and Gram Stain Routine Lab 08/11/21 11:00 Results Anaerobic Culture Routine Lab 08/11/21 11:00 Results Blood Culture Stat Lab 08/10/21 16:20 Results Radiology Impressions Scrotum Ultrasound 08/10/21 10:59 IMPRESSION: 1. RIGHT scrotal skin thickening. 2. Moderate RIGHT and small LEFT hydroceles. Septations in the RIGHT hydrocele. 3. Normal testicular vascularity bilaterally. 4. No focal testicular lesions. Abdomen/Pelvis CT 08/10/21 12:19 IMPRESSION: 1. Atrophic LEFT kidney with moderate LEFT hydronephrosis and obstructing LEFT proximal ureteral calculi the largest measuring 7 mm unchanged from previous. 2. No hydronephrosis in RIGHT kidney. 3. Diffuse bladder wall thickening can be seen with cystitis. 4. Dense sigmoid constipation. 5. Fluid collection measuring 8.1 x 6.1 x 5.5 cm with some surrounding inflammatory stranding involving the pubis. This is deep to the pubic bone and anterior to the pubic symphysis. Recommend correlation for infection. Fluid collection abuts the dorsal aspect of the penis. 6. Small bilateral hydroceles and scrotal skin thickening. C-Arm Fluoroscopy 08/11/21 09:04 IMPRESSION: Images obtained for intraoperative purposes. Laboratory Results WBC 11.6 10^3/uL (4.0-10.0) H 08/14/21 04:28 RBC 3.31 10^6/uL (4.1-5.3) L 08/14/21 04:28 Hgb 9.1 g/dL (11.7-16.6) L 08/14/21 04:28 Hct 30.1 % (42.0-52.0) L 08/14/21 04:28 MCV 90.9 fl (80-94) 08/14/21 04:28 MCH 27.5 pg (28.0-34.0) L 08/14/21 04:28 MCHC 30.2 g/dL (30.0-36.0) 08/14/21 04:28 RDW 15.3 % (12.1-15.1) H 08/14/21 04:28 Plt Count 712 10^3/cmm (130-400) H 08/14/21 04:28 MPV 10.4 fL (7.4-10.4) 08/14/21 04:28 Neut % (Auto) 60.4 % 08/14/21 04:28 Lymph % (Auto) 23.0 % 08/14/21 04:28 [place] % (Auto) 8.5 % 08/14/21 04:28 Eos % (Auto) 3.2 % 08/14/21 04:28 Baso % (Auto) 0.4 % 08/14/21 04:28 Neut # (Auto) 7.03 10^3/uL (1.8-7.7) 08/14/21 04:28 Lymph # (Auto) 2.7 10^3/uL (0.8-4.8) 08/14/21 04:28 [place] # (Auto) 1.0 10^3/uL (0.2-0.9) H 08/14/21 04:28 Eos # (Auto) 0.4 10^3/uL (0.0-0.8) 08/14/21 04:28 Baso # (Auto) 0.1 10^3/uL (0.0-0.1) 08/14/21 04:28 Nucleated RBC % (auto) 0 % 08/14/21 04:28 Nucleated RBCs # 0.0 /100WBC 08/14/21 04:28 Sodium 135 mmol/L (136-145) L 08/14/21 04:28 Potassium 4.4 mmol/L (3.5-5.1) 08/14/21 04:28 Chloride 103 mmol/L (98-107) 08/14/21 04:28 Carbon Dioxide 24 mmol/L (22-29) 08/14/21 04:28 Anion Gap 12.4 (5-19) 08/14/21 04:28 BUN 10 mg/dL (6-20) 08/14/21 04:28 Creatinine 0.4 mg/dL (0.7-1.2) L 08/14/21 04:28 GFR Calculation 220.9 mL/min (90-130) H 08/14/21 04:28 Glucose 86 mg/dL (65-115) 08/14/21 04:28 Calculated Osmolality 278 mOsm/kg (285-295) L 08/14/21 04:28 Lactic Acid 0.9 mmol/L (0.5-2.2) 08/10/21 16:20 Calcium 8.8 mg/dL (8.5-10.5) 08/14/21 04:28 Total Bilirubin 0.2 mg/dL (0.15-1.2) 08/14/21 04:28 AST 17 U/L (0-40) 08/14/21 04:28 ALT 7 U/L (0-41) 08/14/21 04:28 Alkaline Phosphatase 119 IU/L (40-130) 08/14/21 04:28 Total Protein 6.5 g/dL (6.6-8.7) L 08/14/21 04:28 Albumin 2.3 g/dL (3.5-5.2) L 08/14/21 04:28 Globulin 4.2 g/dL (1.3-4.6) 08/14/21 04:28 TSH 1.25 uIU/mL (0.27-4.20) 08/11/21 04:49 Urine Color Yellow (Yellow) 08/10/21 11:11 Urine Appearance Cloudy (CLEAR) 08/10/21 11:11 Urine pH 6.5 (5-7) 08/10/21 11:11 Ur Specific [place] 1.010 (1.005-1.030) 08/10/21 11:11 Urine Protein Neg (Negative) 08/10/21 11:11 Urine Glucose (UA) Norm (Normal) 08/10/21 11:11 Urine Ketones Negative (Negative) 08/10/21 11:11 Urine Blood 2+ (Negative) H 08/10/21 11:11 Urine Nitrate Positive (Negative) H 08/10/21 11:11 Urine Bilirubin Neg (Negative) 08/10/21 11:11 Urine Urobilinogen Norm mg/dL (Negative) 08/10/21 11:11 Ur Leukocyte Esterase 2+ (Negative) H 08/10/21 11:11 Urine RBC 5-10 /hpf (0-2) H 08/10/21 11:11 Urine WBC >100 /hpf (0-5) H 08/10/21 11:11 Ur Squamous Epith Cells 0-4 /hpf (0-5) H 08/10/21 11:11 Amorphous Sediment Not Reportable 08/10/21 11:11 Urine Bacteria 4+ /hpf (NONE) H 08/10/21 11:11 SARS-CoV-2 Ag (Rapid) Negative (Negative) 08/13/21 13:04 Vitals Last Vital Signs Temp 98.2 F 08/14/21 14:52 Pulse 75 08/14/21 14:52 Resp 16 08/14/21 14:52 BP 120/76 08/14/21 14:52 Pulse Ox 98 08/14/21 14:52 Discharge Plan Discharge Patient Disposition: Xfer SNF Condition: Stable Prescriptions: New cefdinir 300 mg capsule 300 mg PO BID 10 Days Qty: 20 0RF linezolid 600 mg tablet 600 mg PO BID 10 Days Qty: 20 0RF Continued Senna-S 8.6-50 mg Tablet 1 tab PO BID 0RF levothyroxine 75 mcg tablet 75 mcg PO QAM 0RF Flomax 0.4 mg Capsule 0.4 mg PO QPM 0RF baclofen 10 mg Tablet 20 mg PO TID 0RF Colace 100 mg Capsule 100 mg PO TID 0RF levetiracetam 750 mg tablet 750 mg PO BID 0RF Miralax 17 gram/dose Powder See Rx Instructions .ROUTE .COMPLEX 0RF Rx Instructions: 17 g orally every 3 days in the am and prn Cymbalta 60 mg Capsule,Delayed Release(Dr/Ec) 60 mg PO BID 0RF calcium citrate-vitamin D3 315 mg-6.25 mcg (250 unit) Tablet 1 tab PO QAM 0RF senna 8.6 mg Tablet 8.6 mg PO QID 0RF Tylenol 325 mg Tablet 650 mg PO Q4H PRN (Reason: Pain) 0RF Zofran 4 mg Tablet 4 mg PO Q4H PRN (Reason: Nausea) 0RF acetaminophen 500 mg Tablet 1,000 mg PO TID 0RF Milk of Magnesia 400 mg/5 mL Suspension See Rx Instructions .ROUTE .COMPLEX 0RF Rx Instructions: 30 mL orally every 3rd day prn if no bm calcium carbonate 500 mg calcium (1,250 mg) Tablet 500 mg PO DAILY PRN (Reason: Heartburn) 0RF Dulcolax (bisacodyl) 10 mg Suppository See Rx Instructions .ROUTE .COMPLEX 0RF Rx Instructions: 10 mg rectally after mom if no bm prn only if tabs refused gabapentin 300 mg Capsule 900 mg PO TID 0RF magnesium citrate Solution See Rx Instructions .ROUTE .COMPLEX 0RF Rx Instructions: 10 oz po after dulcolax if no bm prn Dulcolax (bisacodyl) 5 mg Tablet,Delayed Release (Dr/Ec) See Rx Instructions .ROUTE .COMPLEX 0RF Rx Instructions: 20 mg orally prn after mom if no bm alum-mag hydroxide-simeth 200-200-20 mg/5 mL Suspension 30 ml PO Q2H PRN (Reason: Indigestion) 0RF Dilaudid 4 mg Tablet 4 mg PO Q4H 0RF Rx Instructions: 00:00,04:00,08:00,12:00,16:00,20:00 oxycodone 5 mg Tablet 5 mg PO Q6H PRN (Reason: Pain) 0RF ramelteon 8 mg Tablet 8 mg PO BEDTIME PRN (Reason: Insomnia) 0RF benzocaine-menthol 6-10 mg Lozenge 1 bertrand PO Q2H PRN (Reason: Sore Throat) 0RF cranberry conc-ascorbic acid 4,200-20 mg Capsule 4 cap PO DAILY 0RF Daily Fiber 0.4 gram Capsule 0.16 g PO DAILY 0RF Discharge Orders: Discharge Order (Routine); Ordered 08/14/21 Ordered By: Kevin Reed Referrals: Chi Pitts MD [Physician] - 6 Weeks (I will see him back in approximately 6 weeks as long as his dressing changes are going well. He will need a KUB, renal ultrasound, pelvic ultrasound. ) Nickie Hathaway MD [Referring] - 4-7 days (Please call Dr. Hathaway's office and schedule an appointment to be seen in 7 days.) Discharge Diet: Usual diet Discharge Activity: Resume usual activity Patient Instructions: Kidney Stones (GEN), Hydrocele (GEN), Hydronephrosis (GEN), Abscess Incision and Drainage (GEN), Opioid Safety Activity Restrictions/Additional Instructions: WOUND CARE INSTRUCTIONS: 1. There is a suprapubic wound that extends down into a large pelvic pocket where the abscess was located. 2. The subcutaneous fat extends about an inch and a half and below that level the pocket extends subfascially. The total depth is about 3 to 3.5 inches. 3. The wound needs to be changed daily with dry 1 inch Sneha. It takes about 1/2-2/3 of a role to pack the wound. It does not need to be packed tightly. 4. It is very important that the dressing be placed to the bottom of the cavity. Again this is about 3 to 3.5 inches deep. I have used cotton tip applicators to make sure that the depth of the cavity is reached. 5. I expect it will take several weeks possibly longer for the cavity to close. 6. You can change the dressing more often if it becomes more soupy. 7. Please call my office at [phone] if you have any questions. 8. I will plan on seeing him back in about 6 weeks with a KUB, renal ultrasound, abdominal/pelvic ultrasound. Discharge Attestations Time Spent in Discharge Care*: greater than 30 min Quality Metrics Clinical Quality Measures [ No reported AMI, CVA or VTE this stay] Coding Level of Care Code Acute Chg FW DC note Diagnoses Pelvic fluid collection R18.8 Left ureteral calculus N20.1
== END 2021-08-14 14:45 | disposition skilled nursing facility (03) | DRG 602 ==
LOC: ER 14:39 → MEDSURG 16:25
PROVIDERS: Urology; Admitting Provider Hospitalist; Emergency Provider Family Medicine; Visit Provider Internal Medicine
PROC: 0TJB8ZZ Inspection of Bladder, Via Natural or Artificial Opening Endoscopic (ICD-10-PCS; CPT 52000; principal; 2021-08-11 09:35)
PROC: 0TJB8ZZ Inspection of Bladder, Via Natural or Artificial Opening Endoscopic (ICD-10-PCS; CPT 50605; 2021-08-11 09:35)
PROC: 0TJB8ZZ Inspection of Bladder, Via Natural or Artificial Opening Endoscopic (ICD-10-PCS; 2021-08-11 09:35)
DX: L02.215 Cutaneous abscess of perineum (principal); G82.50 Quadriplegia, unspecified; N13.2 Hydronephrosis with renal and ureteral calculous obstruction; Z16.11 Resistance to penicillins; Z16.23 Resistance to quinolones and fluoroquinolones; Z16.29 Resistance to other single specified antibiotic; R18.8 Other ascites; N10 Acute pyelonephritis; N43.3 Hydrocele, unspecified; B96.20 Unspecified Escherichia coli [E. coli] as the cause of diseases classified elsewhere; Z87.891 Personal history of nicotine dependence; K59.09 Other constipation; Z79.891 Long term (current) use of opiate analgesic; E03.9 Hypothyroidism, unspecified; F32.A Depression, unspecified; Z87.820 Personal history of traumatic brain injury
CPT/HCPCS: 36415; 74176; 76000; 76870; 80048; 80053; 81001; 83605; 84443; 85025; 87040; 87070; 87075; 87077; 87086; 87186; 87205; 87426; 96365; 96375; 99285; C2625; J0690; J0696; J0743; J2270; J2370; J2405; J2704; J3010; J3490; J7030; Q0162

== ENCOUNTER → 2021-08-11 09:35 | Day surgery (SDC) | payer MEDICARE, MEDICAID, SELFPAY | PROVIDERS: PCP Urology; Visit Provider Urology | DX: Z01.818 Encounter for other preprocedural examination (principal) | CPT/HCPCS: J2370; J2405; J2704; J3010; J3490 ==

== ENCOUNTER → 2022-09-27 15:26 | Outpatient (BNVA) | payer MEDICARE, MEDICAID, SELFPAY | PROVIDERS: PCP Urology; Visit Provider Orthopaedic Surgery | DX: M54.9 Dorsalgia, unspecified (principal); G82.20 Paraplegia, unspecified; R10.2 Pelvic and perineal pain | CPT/HCPCS: 72100; 72170; 99204 ==

== ENCOUNTER → 2022-10-27 12:49 | Outpatient (BNVA) | payer MEDICARE, MEDICAID, SELFPAY | PROVIDERS: PCP Urology; Visit Provider Orthopaedic Surgery | DX: Z09 Encounter for follow-up examination after completed treatment for conditions other than malignant neoplasm (principal); M71.9 Bursopathy, unspecified | CPT/HCPCS: 99204 ==